=== PATIENT | male | born 1985 | race Caucasian/White ===

== ENCOUNTER 2023-12-27 14:06 | Inpatient (IN) ==
[2023-12-27] MEDS: Ondansetron 4 mg VIAL 2 MG/ML 2 ml VIAL IV ONE (14:37)
[2023-12-27] MEDS: Lactated Ringers 1000 ml BAG 1,000 ML IV ONE (14:38)
[2023-12-27 14:47] LABS: ABS Lymphocytes 1.8 10^3/uL (1.0-4.8); ABS Neutrophils 15.8 10^3/uL (1.5-7.6); Hematocrit 40.3 % (38-53); Hemoglobin 13.7 g/dL (13.2-16.3); Lymphocyte % 9.7 %; Mean Corpuscular Hemoglobin 28.5 pg (27-33); Mean Corpuscular Hgb Conc 34.1 g/dL (31-36); Mean Corpuscular Volume 83.6 fL (80-97); Mean Platelet Volume 7.6 fL (7.5-11.2); Platelet Count 326 10^3/uL (150-450); Red Blood Count 4.82 10^6/uL (4.06-5.63); Red Cell Distribution Width 14.9 % (12-17); White Blood Count 18.6 10^3/uL (3.6-10.2)
[2023-12-27] MEDS: Morphine 4 MG/ML VIAL (1 ml) IV ONE ×3 (14:49→17:50)
[2023-12-27] MEDS ORDERED: Morphine 4 MG/ML VIAL (1 ml) ONE (15:34)
[2023-12-27 15:48] LABS: Albumin 4.4 g/dL (3.2-5.2); Albumin/Globulin Ratio 1.3 (1-3); C Reactive Protein 47.18 mg/L (<8.01); Calcium 9.4 mg/dL (8.6-10.3); Creatinine, Serum 0.83 mg/dL (0.67-1.17); Globulin 3.3 g/dL (2-4); Total Bilirubin 1.2 mg/dL (0.2-1.0); Total Protein 7.7 g/dL (6.4-8.9); eGFR CKD-EPI 114.9 (>60)
[2023-12-27] MEDS: diazePAM INJ CARPUJECT 5 MG/ML SYRINGE IM ONE (15:48)
[2023-12-27 16:22] LABS: Urine Appearance Clear; Urine Bilirubin Negative (Negative); Urine Blood 1+ (Negative); Urine Color Yellow; Urine Glucose Negative (Negative); Urine Ketones Trace (Negative); Urine Nitrite Negative (Negative); Urine Protein Trace (Negative); Urine Specific Gravity 1.026 (1.002-1.030); Urine Urobilinogen Negative (Negative)
[2023-12-27 16:23] LABS: Urine Bacteria Absent /HPF (Absent); Urine Red Blood Cell 3+(>10/hpf) /HPF (0-Trace); Urine Squamous Epithelial Cell Present /HPF (Absent); Urine White Blood Cell Trace(0-5/hpf) /HPF (0-Trace)
[2023-12-27] MEDS: Iohexol 350 (CONTRAST) 500 ML MDV IV ONE (17:30)
[2023-12-27] MEDS: Piperacillin/Tazobac 3.375 BAG 3.375 GM/100 ML BAG IV ONE (17:52)
[2023-12-27] MEDS: Vancomycin 1,500 MG in NS 0.9% 250 ml 250 ML IVPB ONE (18:06)
[2023-12-27] MEDS ORDERED: Succinylcholine 200 mg VIAL 20 mg/ml 10 ml VIAL (200 mg) ONE (18:36)
[2023-12-27] MEDS ORDERED: Etomidate 20 mg/10 ml 2 MG/ML 10 ml VIAL ONE (18:36)
[2023-12-27] MEDS ORDERED: Propofol 10 MG/ML 20 ML BTL ONE ×2 (18:36→21:12)
[2023-12-27] MEDS ORDERED: Phenylephrine 40 mcg/mL 10mL (400mcg) SYRINGE ONE (18:37)
[2023-12-27] MEDS ORDERED: Lidocaine 2% PF 5 ML VIAL ONE (18:37)
[2023-12-27] MEDS ORDERED: Rocuronium 50 mg VIAL 10 mg/ml 5 ml VIAL (50 mg) ONE ×4 (18:37→21:12)
[2023-12-27] MEDS: fentaNYL 100 mcg/2 ml 50 MCG/ML VIAL IV SLOW PU ONE (18:41)
[2023-12-27] MEDS ORDERED: Phenylephrine IV 10 MG/ML 1 ml VIAL ONE (18:44)
[2023-12-27] MEDS ORDERED: Midazolam 5 mg/5 ml VIAL 1 mg/ml 5 ml VIAL (5 mg) ONE (19:13)
[2023-12-27] MEDS ORDERED: fentaNYL 100 mcg/2 ml 50 MCG/ML VIAL ONE (19:37)
[2023-12-27] MEDS ORDERED: fentaNYL 250 mcg/5 ml 50 MCG/ML 5 ml VIAL (250 MCG) ONE (20:07)
[2023-12-27] MEDS ORDERED: Dexamethasone IV 4 MG/ML VIAL 1 ml VIAL ONE (21:15)
[2023-12-27] MEDS ORDERED: Acetaminophen IV 1 GM/100ML 0 MG/0 ML BAG IV ONE (21:26)
[2023-12-27] MEDS ORDERED: HYDROmorphone 0.5 MG/0.5 ML SYRINGE ONE (21:30)
[2023-12-27] MEDS ORDERED: fentaNYL 100 mcg/2 ml 50 MCG/ML VIAL IV PRN (22:33)
[2023-12-27] MEDS ORDERED: Naloxone 0.4 mg VIAL 0.4 mg/ml 1 ml VIAL IV PRN (22:33)
[2023-12-27] MEDS ORDERED: Metoclopramide 5 MG/ML VIAL (10 mg) IV PRN (22:33)
[2023-12-27] MEDS ORDERED: Ondansetron 4 mg VIAL 2 MG/ML 2 ml VIAL IV PRN (22:33)
[2023-12-27] MEDS ORDERED: NS 0.45% 1000 ml BAG 1,000 ML IV SCH (23:00)
[2023-12-27] MEDS: HYDROmorphone 1 MG/1 ML SYRINGE IV SLOW PU PRN (23:42)
[2023-12-27] MEDS: NS 0.9% 1000 ml BAG 1,000 ML IV SCH (23:50)
[2023-12-27] MEDS: Buffered Lidocaine 1% SYRIN 1 ml INTRADERM ONE (23:51)
[2023-12-27] MEDS: Scopolamine 1 mg/72hr PATCH TRANSDERM ONE (23:52)
[2023-12-27] MEDS: Acetaminophen IV 1 GM/100ML 1,000 MG/100 ML BAG IV ONE ×2 (23:55→23:56)
[2023-12-28] MEDS: Ondansetron 4 mg VIAL 2 MG/ML 2 ml VIAL IV PRN (00:01)
[2023-12-28] MEDS: Lactated Ringers 1000 ml BAG 1,000 ML IV SCH (00:38)
[2023-12-28] MEDS: fentaNYL 100 mcg/2 ml 50 MCG/ML VIAL IV SLOW PU ONE (00:38)
[2023-12-28] MEDS: Piperacillin/Tazobac 3.375 BAG 3.375 GM/100 ML BAG IV SCH (04:13)
[2023-12-28] MEDS: Acetaminophen IV 1 GM/100ML 1,000 MG/100 ML BAG IV SCH (05:26)
[2023-12-28] MEDS: Heparin 5000 UNITS/ML 1 mL VIAL SUBCUT SCH (05:27)
[2023-12-28 07:12] LABS: Calcium 8.3 mg/dL (8.6-10.3); Creatinine, Serum 0.74 mg/dL (0.67-1.17); Potassium 4.3 mmol/L (3.5-5.0); eGFR CKD-EPI 118.9 (>60)
[2023-12-28] MEDS: Nicotine PATCH 21 MG/24 HR PATCH TRANSDERM SCH (07:41)
[2023-12-28] MEDS: Senna TAB 8.6 mg TAB PO SCH (16:17)
[2023-12-28] MEDS: Polyethylene Glycol 3350 17 GM PACKET PO SCH (16:18)
[2023-12-28 17:06] LABS: ABS Lymphocytes 1.9 10^3/uL (1.0-4.8); ABS Neutrophils 13.4 10^3/uL (1.5-7.6); ABS Nucleated RBC 0.01 10^3/ul; Hematocrit 34.9 % (38-53); Hemoglobin 11.5 g/dL (13.2-16.3); Lymphocyte % 11.9 %; Mean Corpuscular Hemoglobin 27.8 pg (27-33); Mean Corpuscular Hgb Conc 33.1 g/dL (31-36); Mean Platelet Volume 8.5 fL (7.5-11.2); Platelet Count 297 10^3/uL (150-450); Red Blood Count 4.16 10^6/uL (4.06-5.63); Red Cell Distribution Width 14.6 % (12-17); White Blood Count 16.4 10^3/uL (3.6-10.2)
[2023-12-29 05:21] LABS: ABS Monocytes 0.8 10^3/uL (0.0-1.1); ABS Neutrophils 9.8 10^3/uL (1.5-7.6); ABS Nucleated RBC 0.01 10^3/ul; Eosinophil % 0.1 %; Hematocrit 33.6 % (38-53); Hemoglobin 11.6 g/dL (13.2-16.3); Lymphocyte % 16.1 %; Mean Corpuscular Hemoglobin 28.6 pg (27-33); Mean Corpuscular Hgb Conc 34.4 g/dL (31-36); Mean Corpuscular Volume 83.1 fL (80-97); Mean Platelet Volume 8.4 fL (7.5-11.2); Nucleated Red Blood Cells % 0.1 %/100WBC (0.0-0.8); Platelet Count 288 10^3/uL (150-450); Red Blood Count 4.05 10^6/uL (4.06-5.63); Red Cell Distribution Width 14.7 % (12-17); White Blood Count 12.7 10^3/uL (3.6-10.2)
[2023-12-29 05:39] LABS: Calcium 8.1 mg/dL (8.6-10.3); Creatinine, Serum 0.72 mg/dL (0.67-1.17); eGFR CKD-EPI 119.9 (>60)
[2023-12-29] MEDS: Nicotine GUM 4MG FRUIT FLAVOR PO PRN (19:22)
[2023-12-29 20:45] LABS: HIV 4th Generation Nonreactive (Nonreactive)
[2023-12-29] MEDS: HYDROmorphone 1 MG/1 ML SYRINGE IV SLOW PU PRN (22:48)
[2023-12-30] MEDS: Polyethylene Glycol 3350 17 GM PACKET PO SCH (21:21)
[2023-12-31 05:34] LABS: ABS Basophils 0.1 10^3/uL (0.0-0.1); ABS Eosinophils 0.3 10^3/uL (0.0-0.5); ABS Lymphocytes 3.1 10^3/uL (1.0-4.8); ABS Monocytes 0.8 10^3/uL (0.0-1.1); ABS Neutrophils 6.6 10^3/uL (1.5-7.6); Eosinophil % 3.2 %; Hematocrit 37.1 % (38-53); Hemoglobin 13.1 g/dL (13.2-16.3); Lymphocyte % 28.4 %; Mean Corpuscular Hemoglobin 29.2 pg (27-33); Mean Corpuscular Hgb Conc 35.3 g/dL (31-36); Mean Corpuscular Volume 82.6 fL (80-97); Mean Platelet Volume 7.4 fL (7.5-11.2); Platelet Count 366 10^3/uL (150-450); Red Blood Count 4.49 10^6/uL (4.06-5.63); Red Cell Distribution Width 14.7 % (12-17); White Blood Count 10.8 10^3/uL (3.6-10.2)
[2023-12-31 06:08] LABS: Calcium 8.5 mg/dL (8.6-10.3); Creatinine, Serum 0.72 mg/dL (0.67-1.17); Magnesium 1.9 mg/dL (1.9-2.7); Phosphorus 4.2 mg/dL (2.5-5.0); eGFR CKD-EPI 119.9 (>60)
[2024-01-01 13:37] VITALS: BP 123/69
== END 2024-01-01 17:30 | disposition home or self-care (01) | DRG 221 ==
LOC: ED 14:06 → OR 18:47 → SSU 23:16
PROVIDERS: ADMIT Surgery; ATTEND Surgery